=== PATIENT | female | born 1955 | race Caucasian/White ===

== ENCOUNTER → 2019-05-07 | Outpatient (CLI) | payer MEDICARE, OTHER ==
[~2019-05-07] MED LIST: ASPI81CH PO; Calcium 500 MG1 EACH PO; Calicum 500+D1 EACH PO; DILTIAZEM ER240 MG PO; GUAI600T33 PO; HYDR1TAB94 PO; Hair, Skin & N1 EACH PO; LEVFLO500 PO; LEVO750 PO; MEGARED OMEGA-1 EAC1 PO; NAPR220 PO; POLY500 PO; TELM40 PO; XARELTO20 MG PO
[2019-05-08 06:44] LABS: Stool Occult Bld Immuno 1 Negative (NEGATIVE); Stool Occult Bld Immuno 2 Positive (NEGATIVE)
== END ==
LOC: OLS 14:57 → LAB SHORT 14:57
PROVIDERS: Internal Medicine Gastroenterology
DX: Z12.11 Encounter for screening for malignant neoplasm of colon (principal)
CPT/HCPCS: G0328

== ENCOUNTER 2019-09-30 13:11 | Day surgery (SDC) | payer MEDICARE, OTHER ==
[~2019-09-30] VITALS: Ht 162.6 cm; Wt 90.8 kg
== END 2019-09-30 15:44 | disposition home or self-care (01) ==
LOC: ORSCSDS 13:11
PROVIDERS: Internal Medicine Gastroenterology
PROC: 0DBK8ZX Excision of Ascending Colon, Via Natural or Artificial Opening Endoscopic, Diagnostic (ICD-10-PCS; principal; 2019-09-30 14:30)
PROC: 0D5N8ZZ Destruction of Sigmoid Colon, Via Natural or Artificial Opening Endoscopic (ICD-10-PCS; principal; 2019-09-30 14:30)
DX: R19.5 Other fecal abnormalities (principal); K57.30 Diverticulosis of large intestine without perforation or abscess without bleeding; D12.2 Benign neoplasm of ascending colon; E66.9 Obesity, unspecified; Z68.36 Body mass index [BMI] 36.0-36.9, adult; K21.9 Gastro-esophageal reflux disease without esophagitis; Z79.82 Long term (current) use of aspirin; Z79.899 Other long term (current) drug therapy
CPT/HCPCS: 88305; J2704; J7120

== ENCOUNTER 2024-08-12 06:37 | Day surgery (SDC) | payer MEDICARE, OTHER ==
[~2024-08-12] VITALS: Ht 160 cm; Wt 91.8 kg
[2024-08-12] MEDS ORDERED: CENTRUM ADULT80 MCG (06:50)
[2024-08-12] MEDS ORDERED: MAGCHL64ER (06:50)
[2024-08-12] MEDS ORDERED: PROBIOTIC1 EA14 (06:50)
[2024-08-12] MEDS ORDERED: Calcium Carbon500 MG (06:50)
[2024-08-12] MEDS ORDERED: ACET120S (06:51)
[2024-08-12] MEDS ORDERED: ATOR10 (06:52)
[2024-08-12] MEDS ORDERED: propofoL 50 ML IV ONE (07:37)
[2024-08-12] MEDS ORDERED: Lactated Ringer's 1,000 ML IV ONE ×2 (07:37→07:50)
[2024-08-12 08:51] VITALS: BP 131/78
== END 2024-08-12 08:53 | disposition home or self-care (01) ==
LOC: ORSCSDS 06:37
PROVIDERS: Specialist
PROC: 0DJD8ZZ Inspection of Lower Intestinal Tract, Via Natural or Artificial Opening Endoscopic (ICD-10-PCS; principal; 2024-08-12 08:00)
DX: Z12.11 Encounter for screening for malignant neoplasm of colon (principal); Z86.0101 Personal history of adenomatous and serrated colon polyps; K64.8 Other hemorrhoids; K57.30 Diverticulosis of large intestine without perforation or abscess without bleeding; Z79.82 Long term (current) use of aspirin; Z79.899 Other long term (current) drug therapy
CPT/HCPCS: J2704; J7120